=== PATIENT | female | born 1995 | race Caucasian/White ===

== ENCOUNTER 2023-02-27 16:41 | Emergency (ER) | payer SELFPAY ==
[2023-02-27 16:46] VITALS: BP 144/92; PULSE 111; RESP 18; TEMP 37.2; O2SAT 99; BMI 21.6
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
[2023-02-27 17:37] LABS: Amphetamine Screen Urine NEGATIVE (NEGATIVE); Barbiturates Screen Urine NEGATIVE (NEGATIVE); Benzodiazepines Screen Urine NEGATIVE (NEGATIVE); Buprenorphine Screen Urine NEGATIVE (NEGATIVE); Cannabinoid Screen Urine POSITIVE (NEGATIVE); Cocaine Screen Urine POSITIVE (NEGATIVE); Methadone Screen Urine NEGATIVE (NEGATIVE); Methamphetamines Screen Urine NEGATIVE (NEGATIVE); Opiate Screen Urine NEGATIVE (NEGATIVE); Oxycodone Screen Urine NEGATIVE (NEGATIVE); Phencyclidine Screen Urine NEGATIVE (NEGATIVE); Tricyclic Antidepressant Urine NEGATIVE (NEGATIVE)
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
[2023-02-27] MEDS: BACITRACIN 0.9 GM PACKET 1 PACKET TOPICAL (19:14)
[2023-02-27] MEDS: KETOROLAC TROMETHAMINE 10 MG TABLET PO (19:14)
[2023-02-27] MEDS: METHOCARBAMOL 500 MG TABLET PO (19:15)
--- NOTE | 2023-02-27 19:23 | PC.NURSE ---
Finger placed in digit splint in position of function, left knee abrasion cleaned and neosporin adaptic and coban placed.
[2023-02-27 19:24] VITALS: BP 118/75; PULSE 87; RESP 16; O2SAT 97
== END 2023-02-27 19:24 | disposition home or self-care (01) ==
PROVIDERS: Physician Assistant; Emergency Provider Emergency Medicine
DX: S80.02XA Contusion of left knee, initial encounter (principal); S60.221A Contusion of right hand, initial encounter; V47.5XXA Car driver injured in collision with fixed or stationary object in traffic accident, initial encounter; F17.200 Nicotine dependence, unspecified, uncomplicated
CPT/HCPCS: 36415; 70450; 72125; 73130; 73564; 80307; 99285

== ENCOUNTER 2023-10-25 12:01 | Emergency (ER) | payer BC, SELFPAY ==
[2023-10-25 12:08] VITALS: BP 132/87; PULSE 102; TEMP 36.8; O2SAT 99; BMI 23.3
--- NOTE | 2023-10-25 12:18 | XR_ITS ---
The [address] [address] Patient Name: TATIANA HOLLINGSWORTH MRN: [id number] date: 1995 Sex: F Assigned Patient Location: Current Patient Location: Accession/Order Number: [id number] Exam Date: 10/25/2023 12:32 Report Date: 10/25/2023 13:40 At the request of: MATHEW PONCE Procedure: XR chest 1V EXAM: XR chest HISTORY: . pain contusion . COMPARISON: None. TECHNIQUE: Single view of the chest FINDINGS: Heart and vascularity are unremarkable. Lungs are free of focal infiltrates. Grossly no acute bony abnormality is appreciated. No pneumothorax is identified. XR/XR chest 1V IMPRESSION: No acute heart or lung disease identified. Electronically authenticated by: SVITLANA JONES Date: 10/25/2023 13:40
--- OUTSIDE RECORDS SUMMARY | 2023-10-25 12:31 | XMS_ITS | CCD ---
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 from multiple sources. Caution should be exercised in using it in the provision of clinical care. This summary normalizes information from multiple sources, and as a consequence, information in this document may materially change the coding, format and clinical context of patient data. In addition, data may be omitted in some cases. CLINICAL DECISIONS SHOULD BE BASED ON THE PRIMARY CLINICAL RECORDS. [employer] provides no warranty or guarantee of the accuracy or completeness of information in this document.
[2023-10-25] MEDS: IBUPROFEN 600 MG TABLET PO (12:36)
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
[2023-10-25 13:30] VITALS: BP 117/75; PULSE 98; O2SAT 99
== END 2023-10-25 13:32 | disposition home or self-care (01) ==
PROVIDERS: Emergency Provider Emergency Medicine
DX: S20.212A Contusion of left front wall of thorax, initial encounter (principal); S00.83XA Contusion of other part of head, initial encounter; X58.XXXA Exposure to other specified factors, initial encounter; F17.200 Nicotine dependence, unspecified, uncomplicated
CPT/HCPCS: 71045; 99283

== ENCOUNTER 2024-11-05 15:04 | Emergency (ER) | payer MEDICAID, SELFPAY ==
[2024-11-05 15:10] VITALS: BP 119/76; PULSE 115; TEMP 36.8; O2SAT 95; BMI 31.6
--- NOTE | 2024-11-05 15:16 | PC.NURSE ---
right ankle swelling with pain
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
--- OUTSIDE RECORDS SUMMARY | 2024-11-05 15:16 | XMS_ITS | Encounter Summary ---
Author Organization [facility] Address [address] [place] [address] Care Team Providers Care Metals Analyst Name Role Phone Basia Baker PATIENT CASE MANAGER Unavailable [phone] Maricarmen Grover MD, IBCLC Primary Care Provid er Encounter Details Date Type Department Care Team (Late st Contact Info) Description 03/09/2023 Orders Only [facility] [address] [place] [address] System, Provider Not In Social History Tobacco Use Types Packs/Day Years Used Date Smoking Tobacco: Former Cigarettes S tarted: 03/01/2013 Smokeless Tobacco: Never Comments:6-10 cigs/ day Alcohol Use Standard Drinks/Week Comments Yes 2 (1 standard drink = 0.6 oz pure alcohol) caffeine intake : 3-4 cups per day coffee, occasional pop Education Answer Date Recorded What is the highest level of school you have completed or the highest degree you have received? High school graduate 10/02/2022 Comments Unknown Sex and Gender Information Value Date Recorded Sex Assigned at Not on file Legal Sex Female 7:00 PM EDT Gender Identity Not on file Sexual Orientation Not on file documented as of this encounter Plan of Treatment Not on file documented as of this encounter Procedures Procedure Name Priority Date/Time Associated Diagnosis Comments DRUG SCREEN PANEL, EMERGENCY Routine 02/27/2023 3:56 PM EST documented in this encounter Results * Drug screen panel, emergency (02/27/2023 3:56 PM EST) Urine Urine specimen obtained by clean catch procedure / Unknown us Provider Not In System LAB URINE ORDERABLES Deanne l Result documented in this encounter Visit Diagnoses Not on filedocumented in this encounter Care Teams Metals Analyst Relationship Specialty Start Date End Date Basia Baker, PATIENT CASE MANAGER [address] [place] [address] PCP - [facility] 05/30/22 4 Maricarmen Grover MD, IBCLC [address] [place] [address] PCP - General Family Medicine 11/05/22 documented as of this encounter
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
--- OUTSIDE RECORDS SUMMARY | 2024-11-05 15:16 | XMS_ITS | Encounter Summary ---
Author Organization [facility] Address [address] [place] [address] Care Team Providers Care Occupational Therapy Program Director Name Role Phone Basia Baker PLUMBING SERVICE TECHNICIAN Unavailable [phone] Unallocated, Noms Provider MD Primary Care Provi valeria Maricarmen Grover MD, IBCLC Primary Care Provid er Encounter Details Date Type Department Care Team (Late st Contact Info) Description 09/29/2022 Abstract [facility] [address] [place] [id number] Jonathan Hawkins, [address] [place] [address] Social History Tobacco Use Types Packs/Day Years [...] on file documented as of this encounter Visit Diagnoses Not on filedocumented in this encounter Care Teams Occupational Therapy Program Director Relationship Specialty Start Date End Date Basia Baker, PLUMBING SERVICE TECHNICIAN [address] [facility] [address] [place] [address] PCP - [facility] 05/30/22 4 Unallocated, Noms Provider, [address] [place], [place] [id number] PCP - General 09/13/22 11/04/22 Maricarmen Grover MD, IBCLC [address] [place] [address] PCP - General Family Medicine 11/05/22 documented as of this encounter
--- OUTSIDE RECORDS SUMMARY | 2024-11-05 15:16 | XMS_ITS | Clinical Summary ---
Author Organization [facility] Address [address], [address] [place] [address] Care Team Providers Care Electrophysiology Nurse Practitioner Name Role Phone Unavailable Primary Care Provider Unavailabl e Allergies No known active allergies Medications adalimumab (HUMIRA) 40 MG/0.8ML injection Inject 0.8 mLs into the skin once a week Active Social History Tobacco Use Types Packs/Day Years Used Date Smoking Tobacco: Every Day Cigarettes E-Cigarettes Smokeless Tobacco: Never Tobacco Cessation:Ready to Q uit: Not Asked; Counseling Given: Not Answered Alcohol Use Standard Drinks/Week Comments Yes 0 (1 standard drink = 0.6 oz pur e alcohol) occ [facility]UDIT-C Answer Date Recorded Q1: How often do you have a drink containing alcohol? Never 02/27/2023 Q2: How many drinks containi ng alcohol do you have on a typical day when you are drinking? Patient does not drink Q3: How often do you have si x or more drinks on one occasion? Never 02/27/2023 Comments No Sex and Gender Information Value Date Recorded Sex Assigned at Not on file Legal Sex Female 2:42 AM EST Gender Identity Not on file Sexual Orientation Not on file Last Filed Vital Signs Vital Sign Reading Time Taken Comments Blood Pressure 114/88 02/27/2023 2:51 AM EST Pulse 101 02/27/2023 2:58 AM EST Temperature 36.3 C (97.4 F) 02/27/2023 2:58 AM EST Respiratory Rate 17 02/27/2023 2:51 AM EST Oxygen Saturation 99% 02/27/2023 2:51 AM EST Inhaled Oxygen Concentration - - Weight - - Height - - Body Mass Index - - Plan of Treatment Health Maintenance Due Date Last Done Comments DTaP/Tdap/Td vaccine (1 - Tdap) 2014 COVID-19 Vaccine (2023-2 5 season) 2023 Flu vaccine (#1) 09/29/2024 Polio vaccine Aged Out No longer jasmineg benitez based on patient's age to complete this topic Insurance
--- NOTE | 2024-11-05 15:20 | XR_ITS ---
[facility] [place] [id number] Patient Name: TATIANA HOLLINGSWORTH MRN: [id number] date: 1995 Sex: F Assigned Patient Location: ED.MAIN Current Patient Location: ED.MAIN Accession/Order Number: [id number] Exam Date: 11/05/2024 15:45 Report Date: 11/05/2024 16:33 At the request of: ROSCOE EUGENE Procedure: XR ankle RT min 3V RIGHT ANKLE - 3 views CLINICAL HISTORY: Fall, lateral swelling and pain COMPARISON: None FINDINGS: Soft tissue swelling is noted. Mildly displaced fracture involving the distal fibula. Distal tibia appears intact. Ankle mortise appears intact. XR/XR ankle RT min 3V IMPRESSION: MILDLY DISPLACED FRACTURE INVOLVING THE DISTAL FIBULA. Impression dictated by: Aixa River Jr.ORyan 11/05/2024 4:33 PM Dictation Location: [place] [address] Electronically authenticated by: [id number] Y Date: 11/05/2024 16:33
--- NOTE | 2024-11-05 15:22 | ED.GENADUL1 ---
HPI HPI - General Adult General Chief complaint: Extremity Injury, Lower Stated complaint: FALL, PAIN IN R ANKLE Time Seen by Provider: 11/05/24 15:15 Source: patient Mode of arrival: walk-in History of Present Illness HPI narrative: Patient is a 29-year-old female that presents to the emergency department with complaints of right lateral ankle pain and swelling after she twisted her ankle last night after someone was playing around and picked her up and she came down on her right ankle wrong and inverted it. She had immediate pain and since then has not been able to fully weight-bear on it. She states that she did drive here and used it nonweightbearing. She has not taken any OTC NSAIDs. She denies any medication use, has not had any previous injuries or surgery to this ankle. Related Data Home Medications ?Medication ?Instructions ?Recorded ?Confirmed No Known Home Medications 10/25/23 10/25/23 Allergies Allergy/AdvReac Type Severity Reaction Status Date / Time No Known Drug Allergies Allergy Verified 10/25/23 12:08 Review of Systems ROS Status of ROS 10 or more systems reviewed and unremarkable except as noted in history and below PFSH PFS Social History Smoking status: Current every day smoker Little interest or pleasure in doing things: not at all Feeling down, depressed, or hopeless: not at all Exam Narrative Exam Narrative: General: No distress, age-appropriate Skin: Warm, dry, no pallor. No rash. Head: Normocephalic, atraumatic. Neck: Supple, non-tender. Eye: Pupils are equal, round and EOMI. No scleral icterus. Ears, Nose, Mouth, and Throat: No nasal mucosal hypertrophy. Oral mucosa is moist, no posterior oropharynx erythema, uvula is mid-line Cardiovascular: Regular Rate and Rhythm without murmur, gallop or rub. Respiratory: No accessory muscle use or respiratory distress. Back: No midline thoracic or lumbar vertebral tenderness. Musculoskeletal: Full ROM of all extremities except decreased ROM of the right ankle in inversion/eversion. 2+ DP pulse palpated. Sensation intact distally with light touch. Positive squeeze test. Tenderness with palpation of the distal fibula, ATFL, CFL, and PTFL. Positive anterior drawer test for pain, no instability positive lateral tilt for pain. No instability no calf or popliteal tenderness Neurological: A&O x4. No cranial nerve dysfunction observed. No truncal ataxia. Moves all extremities. Sensation intact. Psychiatric: Cooperative and interactive. Normal mood and affect. Constitutional Vital Signs, click to edit/add: Last Vital Signs Temp 98.2 F 11/05/24 15:10 Pulse 115 H 11/05/24 15:10 Resp 18 11/05/24 15:10 BP 119/76 11/05/24 15:10 Pulse Ox 95 11/05/24 15:10 O2 Del Method Room Air 11/05/24 15:10 Course Vital Signs Vital signs: Vital Signs Temperature 98.2 F 11/05/24 15:10 Pulse Rate 115 H 11/05/24 15:10 Respiratory Rate 18 11/05/24 15:10 Blood Pressure 119/76 11/05/24 15:10 Pulse Oximetry 95 11/05/24 15:10 Oxygen Delivery Method Room Air 11/05/24 15:10 Temperature 98.2 F 11/05/24 15:10 Pulse Rate 115 H 11/05/24 15:10 Respiratory Rate 18 11/05/24 15:10 Blood Pressure 119/76 11/05/24 15:10 Pulse Oximetry 95 11/05/24 15:10 Oxygen Delivery Method Room Air 11/05/24 15:10 Medical Decision Making MDM Narrative Medical decision making narrative: 29-year-old female that who presented to the emergency department with complaints of right ankle pain and swelling since last night when she was playing around with someone that had picked her up and she came down wrong on her right ankle and inverted it. She has had pain since that time and states that she cannot place any weight on it. IM Toradol 30 mg given for pain. There is lateral swelling and tenderness with palpation of the distal fibula. X-ray right ankle ordered. Positive for distal fibula fracture, does not appear unstable. Patient updated with results and questions answered. I recommended nonweightbearing in a tall cam walking boot with crutches until she is seen by Ortho next week. When she is resting and elevating her pain is controlled and thus I recommended nonweightbearing and OTC NSAIDs as needed for pain. Patient given information to call Dr. Jackson's (Ortho) office tomorrow for follow-up next week. Patient was neurovascularly intact after tall cam walking boot was placed. Patient was discharged in good condition to home. Differential Diagnosis Differential Diagnosis: Ankle sprain, ankle fracture Discharge Plan Discharge Chief Complaint: Extremity Injury, Lower Clinical Impression: Fracture of distal end of fibula Qualifiers: Encounter type: initial encounter Fracture type: closed Fracture morphology: unspecified fracture morphology Laterality: right Qualified Code(s): S82.831A - Other fracture of upper and lower end of right fibula, initial encounter for closed fracture Patient Disposition: Home, Self-Care Time of Disposition Decision: 16:15 Condition: Good Mode of Transportation: Private Vehicle Prescriptions / Home Meds: No Action No Known Home Medications Print Language: Montenegrin Instructions: Leg Fracture (ED), Crutch Instructions (ED) Additional Instructions: Use CAM boot and crutches to walk with and remain nonweightbearing on your right ankle until seen by Ortho for further instructions. Rest, ice, compression with Padilla wrap, and elevation. You can take ibuprofen/Motrin or Tylenol [id number] as directed as needed for pain. Referrals: Nelson Jackson DO [Physician, Orthopedics] - As soon as possible Referral Note: Call Wednesday for an appointment next week. Physician,Non-Staff, [Primary Care Provider] - 1 week Discharge Date/Time: 11/05/24 17:14
[2024-11-05] MEDS: KETOROLAC TROMETHAMINE 30 MG/ML VIAL IM (15:40)
== END 2024-11-05 17:14 | disposition home or self-care (01) ==
PROVIDERS: Emergency Provider Student in an Organized Health Care Education/Training Program
DX: S82.831A Other fracture of upper and lower end of right fibula, initial encounter for closed fracture (principal); X50.1XXA Overexertion from prolonged static or awkward postures, initial encounter; F17.200 Nicotine dependence, unspecified, uncomplicated
CPT/HCPCS: 73610; 96372; 99284; J1885

== ENCOUNTER 2024-12-07 10:10 | Outpatient (OUT) | payer MEDICAID, SELFPAY ==
--- NOTE | 2024-12-07 | XR_ITS ---
The [address] [address] Patient Name: TATIANA HOLLINGSWORTH MRN: [id number] date: 1995 Sex: F Assigned Patient Location: [facility] Current Patient Location: [facility] Accession/Order Number: [id number] Exam Date: 12/07/2024 10:11 Report Date: 12/07/2024 10:42 At the request of: JEREMY FARRELL DO Procedure: XR ankle RT min 3V RIGHT ANKLE - 3 views COMPARISON: 11/05/2024 CLINICAL DATA: Follow-up distal fibular fracture AP, lateral and oblique views were obtained. An oblique fracture is again visualized at the distal fibular metadiaphysis with slight displacement, unchanged from the prior. A similar tiny bony spicule is again visualized near the tip of the medial malleolus. There is no new fracture or dislocation. The talar dome is intact. There is mild diffuse soft tissue swelling. XR/XR ankle RT min 3V IMPRESSION: STABLE APPEARANCE OF THE ANKLE. Impression dictated by: Romina Styles M.D. 12/07/2024 10:42 AM Dictation Location: [place] [address] Electronically authenticated by: [id number] Y Date: 12/07/2024 10:42
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
== END 2024-12-07 10:11 | disposition home or self-care (01) ==
LOC: RAD 10:10
PROVIDERS: Visit Provider Physician Assistant
DX: S82.831D Other fracture of upper and lower end of right fibula, subsequent encounter for closed fracture with routine healing (principal)
CPT/HCPCS: 73610

== ENCOUNTER 2025-02-08 07:34 | Outpatient (OUT) | payer MEDICAID, SELFPAY ==
--- NOTE | 2025-02-08 | XR_ITS ---
The [address] [address] Patient Name: TATIANA HOLLINGSWORTH MRN: [id number] date: 1995 Sex: F Assigned Patient Location: [facility] Current Patient Location: [facility] Accession/Order Number: [id number] Exam Date: 02/08/2025 11:40 Report Date: 02/08/2025 12:19 At the request of: JEREMY FARRELL DO Procedure: XR ankle RT min 3V RIGHT ANKLE - 3 views CLINICAL DATA: Follow-up distal fibular fracture. Pain and swelling. COMPARISON: 12/07/2024 Standing AP, lateral and oblique views were obtained. There is a stable fracture at the distal fibula with no significant change in alignment. Developing callus formation is seen. A potential tiny avulsion fracture at the tip of the medial malleolus is also again noted. There is no new fracture or dislocation. There are no significant soft tissue abnormalities. XR/XR ankle RT min 3V IMPRESSION: STABLE ANKLE FRACTURES. Impression dictated by: Romina Styles M.D. 02/08/2025 12:19 PM Dictation Location: [place] [address] Electronically authenticated by: [id number] Y Date: 02/08/2025 12:19
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
--- OUTSIDE RECORDS SUMMARY | 2025-02-08 07:48 | XMS_ITS | Clinical Summary ---
Author Organization [facility] Address [address], [address] [place] [address] Care Team Providers Care Typing Section Chief Name Role Phone Unavailable Primary Care Provider Unavailabl e Allergies No known active allergies Medications MedicationSigDispense QuantityRefillsLast FilledStart DateEnd DateStatus adalimumab (HUMIRA) 40 MG/0.8ML injection Inject 0.8 mLs into the skin once a weekActive Social History Tobacco UseTypesPacks/DayYears UsedDateSmoking Tobacco: Every DayCigarettes E-CigarettesSmokeless Tobacco: Never Tobacco Cessation:Ready to Q uit: Not Asked; Counseling Given: Not Answered Alcohol UseStandard Drinks/WeekCommentsYes0 (1 standard drink = 0.6 oz pure alcohol)occAUDIT-CAnswerDate RecordedQ1: How often do you have a drink containing alcohol?Never02/27/2023Q2: How many drinks containing alcohol do you have on a typical day when you are drinking?Patient does not drink02/27/2023Q3: How often do you have six or more drinks on one occasion?Never02/27/2023 CommentsNoSex and Gender InformationValueDate RecordedSex Assigned at BirthNot on fileLegal KgiSrvcij06/30/2023 2:42 AM ESTGender IdentityNot on fileSexual OrientationNot on file Last Filed Vital Signs Vital SignReadingTime TakenCommentsBlood Yupiwagj621/8802/27/2023 2:51 AM EST Ekkqn61915/30/2023 2:58 AM KPMRrrktcfhndk55.3 ??C (97.4 ??F)02/27/2023 2:58 AM ESTRespiratory Lann5251 2:51 AM ESTOxygen Uhvvbeslkn31%02/27/2023 2:51 AM ESTInhaled Oxygen Concentration--Weight--Height--Body Mass Index-- Plan of Treatment Health MaintenanceDue DateLast DoneCommentsDTaP/Tdap/Td vaccine (1 - Tdap) 2014Flu vaccine (#1)09/29/2024OVID-19 Vaccine ( - 2023- season) 2024Polio vaccineAged OutNo longer eligible based on patient's age to complete this topic Insurance * Guarantor: Betzy MeekAccount TypeRelation to PatientDate of BirthPhone Billing AddressPersonal/VwdhmsSiqj1995 [facility] [facility] [address] [place] [id number]
--- OUTSIDE RECORDS SUMMARY | 2025-02-08 07:49 | XMS_ITS | Clinical Summary ---
Author Organization [facility] Address [address] [place] [address] Care Team Providers Care Quality Control Director Name Role Phone Maricarmen Grover MD, IBCLC Primary Care Provid er Allergies No known active allergies Medications MedicationSigDispense QuantityRefillsLast FilledStart DateEnd DateStatus ibuprofen 600 MG tablet Take 600 mg by mouth in the morning and 600 mg in the evening and 600 mg before bedtime.09/07/2022ctive betamethasone dipropionate 0.05 % cream Apply to affected areas on the body (avoid face, axilla and groin) topically BID as needed for 30 days04/17/2022ctive ondansetron ODT (Zofran-ODT) 4 MG disintegrating tablet Take 4 mg by mouth every 8 (eight) hours if xnekaq4805/10/2023ctive clobetasol (Temovate) 0.05 % ointment Indications:Psoriasis vulgarisApply topically 2 (two) times a day 30 g ctive Humira-Psoriasis/Uveit Starter 80 MG/0.8ML & 40MG/0.4ML Pen-injector Kit pen- injector starter kit Indications:Plaque PsoriasisInject 80 mg (contents of one pen) under the skin on day 1. Inject 40 mg (contents of one pen) under the skin on day 8 and day 22. 3 each 11/09/2023ctive Humira, 2 Pen, 40 MG/0.4ML Pen-injector Kit pen-injector Indications:Plaque PsoriasisInject 1 pen (40 mg) under the skin every 14 (fourteen) days Inject 40 mg (contents of one pen) under the skin every two weeks 2 each 1104Active Active Problems ProblemNoted DateDiagnosed DateAnxiety ggxqdq3209/29/2022nxiety neurosis 09/29/2022eritonsillar somupff6709/29/2022soriasis eyzyibua79/01/2023soriasis 09/29/2022 Assessment & Plan (09/29/2022 11:04 AM [...] to Dr Sewell to discuss phototherapy. Psoriatic chukyetfw41/01/2023 Family History Medical HistoryRelationNameCommentsDepressionBrotherDiabetesFatherPancreatic cancerFatherBreast cancerMaternal GrandmotherDepressionMotherHypertensionOther blood diseaseOtherHypertensionPaternal GrandfatherHypertensionPaternal GrandmotherRelationNameStatusCommentsBrotherAliveDaughter 1AliveDaughter 2Alive FatherDeceasedMaternal GrandmotherMotherAliveOtherPaternal GrandfatherPaternal GrandmotherSisterAlive Social History Tobacco UseTypesPacks/DayYears UsedDateSmoking Tobacco: FormerCigarettesStarted: 03/01/2013Smokeless Tobacco: Never Tobacco Cessation:Counseling Given: Not Answered Comments:6-10 cigs/ day Alcohol UseStandard Drinks/WeekCommentsYes2 (1 standard drink = 0.6 oz pure alcohol)caffeine intake : 3-4 cups per day coffee, occasional popEducationAnswer Date RecordedWhat is the highest level of school you have completed or the highest degree you have received?High school /04/2023Comments NoSex and Gender InformationValueDate RecordedSex Assigned at BirthNot on file Legal RidDskfea45/15/2023 7:00 PM EDTGender IdentityNot on fileSexual OrientationNot on file Last Filed Vital Signs Vital SignReadingTime TakenCommentsBlood Ydnclsfh812/6209/11/2023 10:21 AM EDT Dqbzd016509/29/2022 10:22 AM SSSCyfrcvsdeow29.3 ??C (97.3 ??F)09/29/2022 10:22 AM EDTRespiratory Rate--Oxygen Vfbcjqibsc42%09/29/2022 10:22 AM EDTInhaled Oxygen Concentration--Frzfgl53.8 kg (145 lb)11/09/2023 10:21 AM JPOHrgkpc150.1 cm (5' 5 )09/29/2022 10:22 AM EDTBody Mass Index24.1308 10:22 AM EDT Plan of Treatment Health MaintenanceDue DateLast DoneCommentsPap Smear02/02/2016COVID-19 Vaccine ( season)2024Influenza Vaccine (#1)2024ervical Cancer Xvyftuzzn96/04/2025HPV/Vupghg3502/01/2025Pneumococcal Vaccine: Pediatrics (0 to 5 Years) and At-Risk Patients (6 to 64 Years)Aged OutNo longer eligible based on patient's age to complete this topic Insurance * Guarantor: Betzy Meek TypeRelation to PatientDate of BirthPhone Billing AddressPersonal/DsrbwdZesy1995 [address] [address] Care Teams Team MemberRelationshipSpecialtyStart DateEnd Maricarmen Grover MD, IBCLC [address] [place] [address] PCP - GeneralFamily Medicine11/05/22
== END 2025-02-08 07:35 | disposition home or self-care (01) ==
LOC: RAD 07:34
PROVIDERS: Visit Provider Physician Assistant
DX: S82.831D Other fracture of upper and lower end of right fibula, subsequent encounter for closed fracture with routine healing (principal)
CPT/HCPCS: 73610